=== PATIENT | male | born 1960 | race Caucasian/White ===

== ENCOUNTER → 2016-09-30 | Outpatient (CLI) | payer OTHER ==
--- NOTE | 2016-09-30 14:32 | RAD ---
Chest, 2 views, 09/30/2016: History: Preop evaluation for shoulder surgery. The heart size and pulmonary vascularity are normal. No pulmonary infiltrates are seen. There is no evidence of pleural fluid. Moderate hypertrophic spurring is present in the spine. IMPRESSION: No acute cardiopulmonary abnormality is detected.
== END | disposition home or self-care (01) ==
LOC: DXRADRC 11:41
PROVIDERS: ATTEND Nurse Practitioner Family
DX: Z01.818 Encounter for other preprocedural examination (principal)
CPT/HCPCS: 71020

== ENCOUNTER → 2017-03-03 | Outpatient (CLI) | payer OTHER ==
--- NOTE | 2017-03-03 17:24 | RAD ---
Indication: Bloating for one year. Technique: Upright and supine abdomen contains 3 images. Findings: There is no free air. There is no dilated bowel loop or air-fluid level. There are postsurgical changes in the lower lumbar spine. There are degenerative changes in the spine. Impression: Nonobstructive bowel gas pattern.
== END | disposition home or self-care (01) ==
LOC: RAD 16:57
PROVIDERS: ATTEND Physician Assistant
DX: R14.0 Abdominal distension (gaseous) (principal); M47.899 Other spondylosis, site unspecified; Z98.890 Other specified postprocedural states
CPT/HCPCS: 74020

== ENCOUNTER 2019-08-18 18:43 | Emergency (ER) | payer BC, OTHER ==
[~2019-08-18] VITALS: Ht 182.9 cm; Wt 112.0 kg
[2019-08-18 18:52] VITALS: BP 157/112
--- NOTE | 2019-08-18 18:58 | PHYS DOC ---
General Adult EDM: Chief Complaint: BACK PAIN OR INJURY HPI: HPI: ".. I was helping my son move a oak desk up maybe 12- 14 steps.. and I twisted my lower back... that was back on ... I ve seen Dmitriy.. but I am not better..." Patient is a 58 year old male who presents with above hx and complaint of back injury in .. Pt. relates he has had continued pain since injury. Patient denies any problems with defecation or urination. Patient denies any history of immunosuppression. Patient denies any history of cancer. Patient has not had any fevers. Patient localizes pain in lower lumbar and follows the sciatic nerve on the right radiating into the posterior leg. Straight leg lift does exacerbate pain on right leg. Patient denies any saddle loss.. No history of osteopenia. Patient normally follows with Dmitriy. Patient has had previous low back surgery. No history of cancer. No history of IV drug use. Review of Systems: Review of Systems: Constitutional: Denies fever or chills Eyes: Denies change in visual acuity HENT: Denies nasal congestion or sore throat Respiratory: Denies cough or shortness of breath Cardiovascular: Denies chest pain or edema GI: Denies abdominal pain, nausea, vomiting, bloody stools or diarrhea : Denies dysuria Musculoskeletal: Complains right lower back pain and sciatica Integument: Denies rash Neurologic: Denies headache, focal weakness or sensory changes Endocrine: Denies polyuria or polydipsia Lymphatic: Denies swollen glands Psychiatric: Denies depression or anxiety Heart Score: Risk Factors: Risk Factors: DM, Current or recent (<one month) smoker, HTN, HLP, family history of CAD, obesity. Risk Scores: Score 0 - 3: 2.5% MACE over next 6 weeks - Discharge Home Score 4 - 6: 20.3% MACE over next 6 weeks - Admit for Clinical Observation Score 7 - 10: 72.7% MACE over next 6 weeks - Early Invasive Strategies Family History: Family History: Noncontributory Current Medications: Current Meds: See nursing for home meds Allergies: Allergies: No known drug allergies other than Benadryl Physical Exam: PE: Constitutional: moderate acute distress, non-toxic appearance. [] HENT: Normocephalic, atraumatic, bilateral external ears normal, oropharynx moist, no oral exudates, nose normal. [] Eyes: PERRLA, EOMI, conjunctiva normal, no discharge. [] Neck: Normal range of motion, no tenderness, supple, no stridor. [] Cardiovascular:Heart rate regular rhythm, no murmur [] Lungs & Thorax: Bilateral breath sounds clear to auscultation [] Abdomen: Bowel sounds normal, soft, no tenderness, no masses, no pulsatile masses. [] Obese Skin: Warm, dry, no erythema, no rash. [] Back: No tenderness, no CVA tenderness. [] Right sacral muscle and right sciatic nerve tenderness. Old back surgery scar Extremities: No tenderness, no cyanosis, no clubbing, ROM intact, no edema. [] Pain along right sciatic nerve Neurologic: Alert and oriented X 3, normal motor function, normal sensory function, no focal deficits noted. [] DTRs are +2 patella. Patient is amatory without limping gait. Psychologic: Affect anxious, judgement normal, mood normal. [] EKG: EKG: [] Radiology/Procedures: Radiology/Procedures: [][address] [address] IMAGING REPORT Signed PATIENT: CAESAR VALLEJO LACCOUNT: [id number] : 1960 LOCATION: ER AGE: 58 SEX: M EXAM STATUS: REG ER ORD. PHYSICIAN: JONN IVAN MD REASON: Severe lower back pain, injury while lifting. Hx: Surgery PROCEDURE: CT LUMBAR SPINE WO CONTRAST CT LUMBAR SPINE WO CONTRAST Date: 08/18/2019 6:58 PM Indication: Reason: Severe lower back pain, injury while lifting. Hx: Surgery / Spl. Instructions: / History: Comparison: None. Technique: Helical CT images of the lumbar spine were obtained without contrast. Coronal and sagittal reformatted images were also performed. One or more of the following dose reduction techniques were utilized: Automated exposure control (AEC), Adjustment of mA and/or kV according to patient size, Use of iterative reconstruction technique such as ASiR, CT scan done according to ALARA and image gently/image wisely. Findings: Postsurgical changes of posterior decompression and posterior instrumentation at L4-S1 The lumbar spine is normally aligned. No acute fracture. Vertebral body heights are maintained without compression deformity. Mild to moderate multilevel degenerative disc disease. No aggressive lytic or blastic osseous lesion. Multilevel spinal canal stenosis, worst and moderate to severe at L2-3 and L3-4. Multilevel moderate to severe neuroforaminal narrowing. No soft tissue abnormality within the visualized abdomen or pelvis. The visualized abdominal aorta is normal caliber. IMPRESSION: No acute osseous abnormality of the lumbar spine. Moderate to severe lumbar spondylosis. Electronically signed by: Paula Galo MD (08/18/2019 7:30 PM) [id number] DICTATED AND SIGNED BY: PAULA GALO MD DATE: 08/18/191929 CC: JONN IVAN MD; SUNG FOFANA ~ Course & Med Decision Making: Course & Med Decision Making Pertinent Labs and Imaging studies reviewed. (See chart for details) Patient use ice packs as needed. Take Tylenol or Ibuprofen for pain. For marked pain may take Vicoprofen. Take Flexeril 10 mg up to 3 times a day for muscle spasms. Follow-up with primary. Consider follow-up with neurosurgery. May need further evaluation including a CT with intrathecal contrast or myelogram. Consider physical therapy. Consider pain center/trigger point injections. Return if any concerns. Must follow-up. Impression; 1. Back pain-muscle strain 2. Sciatica 3. Multiple level degenerative joint changes= Lumbar Sacral. [] Dragon Disclaimer: Dragon Disclaimer: This electronic medical record was generated, in whole or in part, using a voice recognition dictation system. Departure Departure: Disposition: 01 HOME/RESIDENCE PRIOR TO ADM Condition: STABLE Referrals: SUNG FOFANA (PCP) Scripts Cyclobenzaprine Hcl (CYCLOBENZAPRINE HCL) 10 Mg Tablet 10 MG PO tidp for back spasms, #30 TAB Prov: JONN IVAN MD 08/18/19 Hydrocodone/Ibuprofen (HYDROCODONE-IBUPROFEN 7.5-200 ) 1 Each Tablet 1 TAB PO PRN Q6HRS PRN for PAIN, #30 TAB 0 Refills Prov: JONN IVAN MD 08/18/19 Dragon Disclaimer This chart was dictated in whole or in part using Voice Recognition software in a busy, high-work load, and often noisy Emergency Department environment. It may contain unintended and wholly unrecognized errors or omissions. JONN IVAN MD August 18, 2019 18:57
[2019-08-18] MEDS ORDERED: methylPREDNISolone ACETATE 40 MG/ML VIAL. IM ONE (19:00)
[2019-08-18] MEDS ORDERED: KETOROLAC 60 MG/2 ML VIAL. IM ONE (19:00)
--- NOTE | 2019-08-18 19:33 | RAD ---
CT LUMBAR SPINE WO CONTRAST Date: 08/18/2019 6:58 PM Indication: Reason: Severe lower back pain, injury while lifting. Hx: Surgery / Spl. Instructions: / History: Comparison: None. Technique: Helical CT images of the lumbar spine were obtained without contrast. Coronal and sagittal reformatted images were also performed. One or more of the following dose reduction techniques were utilized: Automated exposure control (AEC), Adjustment of mA and/or kV according to patient size, Use of iterative reconstruction technique such as ASiR, CT scan done according to ALARA and image gently/image wisely. Findings: Postsurgical changes of posterior decompression and posterior instrumentation at L4-S1 The lumbar spine is normally aligned. No acute fracture. Vertebral body heights are maintained without compression deformity. Mild to moderate multilevel degenerative disc disease. No aggressive lytic or blastic osseous lesion. Multilevel spinal canal stenosis, worst and moderate to severe at L2-3 and L3-4. Multilevel moderate to severe neuroforaminal narrowing. No soft tissue abnormality within the visualized abdomen or pelvis. The visualized abdominal aorta is normal caliber. IMPRESSION: No acute osseous abnormality of the lumbar spine. Moderate to severe lumbar spondylosis. Electronically signed by: Jayro Galo MD (08/18/2019 7:30 PM) [id number]
[2019-08-18] MEDS ORDERED: HYDR-1179 PO (20:02)
[2019-08-18] MEDS ORDERED: CYCL-331 PO (20:02)
== END 2019-08-18 20:20 | disposition home or self-care (01) ==
LOC: ER 18:43
DX: S39.012A Strain of muscle, fascia and tendon of lower back, initial encounter (principal); M54.41 Lumbago with sciatica, right side; M47.816 Spondylosis without myelopathy or radiculopathy, lumbar region; X50.9XXA Other and unspecified overexertion or strenuous movements or postures, initial encounter; Y93.89 Activity, other specified; Y92.89 Other specified places as the place of occurrence of the external cause; Y99.8 Other external cause status
CPT/HCPCS: 72131; 96372; 99284; J1030; J1885

== ENCOUNTER → 2019-09-09 | Outpatient (CLI) | payer BC ==
[2019-08-18 18:52] VITALS: BP 157/112
[~2019-09-09] MED LIST: CYCL-331 PO; HYDR-1179 PO; IOHEXOL 300 MG/ML 75 ML VIAL. IV ONE
--- NOTE | 2019-09-09 10:14 | RAD ---
EXAM: CT Lumbar Spine without IV contrast INDICATION: Low back pain. History of previous back surgery. TECHNIQUE: Multi-detector row CT images were obtained through the lumbar spine without the use of IV contrast. Post-processing sagittal and coronal reconstructed images were obtained for interpretation. All CT scans performed at this facility utilize dose optimization techniques as appropriate to the exam, including the following: Automated exposure control and adjustment of the mA and/or KV according to patient size (this includes techniques or standardized protocols for targeted exams where dose is indication/reason for exam). COMPARISON: L-spine CT without IV contrast of 08/18/2019 FINDINGS: The lowest fully formed disc is referred to as the L5-S1 level. ALIGNMENT: Straightening of the lumbar spine. No listhesis. OSSEOUS: Vertebral body heights are preserved. There is mild generalized demineralization. Left-sided L2 inferior endplate lucency extending to the disc is present with surrounding sclerotic margin. This is unchanged at 1.2 cm in diameter and most likely reflects a Schmorl's node. No new or aggressive appearing osseous lesions. Surgical changes from posterior decompression at L4 and L5 are again seen with svitlana and pedicle screw construct bilateral hardware fusion at L4 through S1. DISC SPACES: There is moderate disc space narrowing at L3-L4 and to lesser extent at L2-L3 and L1-L2. The L4 and L5 discs are calcified and likely fused. FACET JOINTS: Bone graft material contributes to facet joint fusion bilaterally at L3-L4 through L5-S1. No jumped facets or facet fractures are appreciated. SPINAL CANAL: Lack of intrathecal contrast limits detail. At L1-L2, disc osteophyte complex and mild bilateral ligamentum flavum thickening results in central canal narrowing to an AP diameter of 6 mm. There is right greater than left moderate to severe bilateral foraminal narrowing. At L2-L3, The combination of disc osteophyte complex and ligamentum flavum thickening results in moderate central canal narrowing to an AP diameter of 9 mm. Moderate bilateral foraminal narrowing is present. At L3-L4, disc osteophyte complex and facet hypertrophic changes, accentuated by presence of bone graft material results in bilateral lateral recess stenosis and moderate bilateral foraminal stenosis. At L4-L5 widely patent central canal status post posterior decompression. Moderate bilateral foraminal and lateral recess narrowing from disc osteophyte complex and facet hypertrophic change. At L5-S1, widely patent central canal status post posterior decompression. Disc osteophyte complex contributes to moderate bilateral lateral recess narrowing and mild bilateral foraminal narrowing. No abnormal enhancement suggestive of a postoperative fluid collection. No masses identified. NEUROFORAMINA: As described SOFT TISSUES: Management Information Systems Director image shows a partially imaged AICD lead at the cardiac base. No acute or unexpected findings. There is expansile deformity to the right iliac bone with central lucency that could reflect heterotopic ossification associated with a bone graft donor site. Presence or absence of communication with the ipsilateral sacroiliac joint or subarachnoid space is not well assessed on this examination. IMPRESSION: Postoperative changes from posterior decompression and hardware fusion at L4-L5 showing residual spinal stenosis from degenerative changes at the nonoperated levels in the upper spine as described. No acute or aggressive appearing osseous lesions. No abnormal fluid collection is identified on CT. If a CSF leak is suspected, CT lumbar myelogram could be pursued in further evaluation. Electronically signed by: Nery Greenfield MD (09/09/2019 10:11 AM) [id number]
== END ==
LOC: CT 08:22
PROVIDERS: ATTEND Physician Assistant
DX: M47.816 Spondylosis without myelopathy or radiculopathy, lumbar region (principal); M51.36 Other intervertebral disc degeneration, lumbar region; M25.78 Osteophyte, vertebrae; M48.07 Spinal stenosis, lumbosacral region
CPT/HCPCS: 72132; Q9967